=== PATIENT | female | born 1945 | race Caucasian/White ===

== ENCOUNTER 2021-07-08 11:42 | Emergency (ER) | payer SELFPAY ==
[2021-07-08] MEDS ORDERED: Sodium Chloride 0.9% 10 ML Syringe FLUSH PRN (11:49)
[2021-07-08] MEDS ORDERED: Aspirin 81 MG Tab.Chew PO ONE (11:57)
[2021-07-08] MEDS ORDERED: Ondansetron 4 MG/2 ML SDV IVPUSH ONE (11:57)
[2021-07-08] MEDS ORDERED: Nitroglycerin 0.4 MG Tab.SL SL ONE (12:01)
--- NOTE | 2021-07-08 12:01 | EDM.PDOC ---
ED HPI GENERAL MEDICAL PROBLEM - General Chief Complaint: Chest Pain Stated Complaint: CHEST PAIN Time Seen by Provider: 07/08/21 11:49 Source of Information: Reports: Patient, RN Notes Reviewed History Limitations: Reports: No Limitations - History of Present Illness INITIAL COMMENTS - FREE TEXT/NARRATIVE: Patient is a 76-year-old female who presents to the ER for evaluation of her chest pain. Notes that this started at around 3 AM this morning. States that it started in her left chest, and is now radiated up to her left jaw, and left arm. States that she is never had pain like this before ever. She states it hurts to take a deep breath as well. Notes a history of hypertension and a smoking history, so she has a congested cough normally and this is not worsened. Other than the above symptoms, she has been feeling well prior to this. She took her blood pressure meds this morning, but did not take any sort of aspirin or anything for the pain. She has a primary care provider at the [facility]. She has had no fevers or chills, she does feel somewhat nauseous but no vomiting or diarrhea, and again no worsening cough or shortness of breath. She further denies any previous cardiac history. Left Chest Pain Score (Numeric/FACES): 10 Left Arm Pain Score (Numeric/FACES): 10 Left Jaw Pain Score (Numeric/FACES): 10 - Related Data Allergies Allergy/AdvReac Type Severity Reaction Status Date / Time No Known Allergies Allergy Verified 07/08/21 11:55 Home Meds: Home Meds cloNIDine [Catapres-TTS 1] 0.1 mg PO DAILY 07/08/21 [History] lisinopriL [Lisinopril] 40 mg PO DAILY 07/08/21 [History] Past Medical History Cardiovascular History: Reports: Hypertension ED ROS GENERAL - Review of Systems Review Of Systems: Comprehensive ROS is negative, except as noted in HPI. ED EXAM, GENERAL - Physical Exam Exam: See Below Exam Limited By: No Limitations General Appearance: Alert, WD/WN, No Apparent Distress, Anxious (slight generalized) Throat/Mouth: Normal Inspection, Normal Lips, Normal Teeth, Normal Gums, Normal Oropharynx, Normal Voice, No Airway Compromise Respiratory/Chest: No Respiratory Distress, Lungs Clear, Normal Breath Sounds, No Accessory Muscle Use, Chest Non-Tender Cardiovascular: Normal Peripheral Pulses, Regular Rate, Rhythm, No Edema Peripheral Pulses: 2+: Radial (L), Radial (R) GI/Abdominal: Normal Bowel Sounds, Soft, Non-Tender, No Distention, No Mass Extremities: Normal Inspection, Normal Capillary Refill Neurological: Alert, Oriented, Normal Cognition, No Motor/Sensory Deficits Psychiatric: Normal Affect, Normal Mood Skin Exam: Warm, Dry, Intact, Normal Color, No Rash #1 Interpretation EKG Date: 07/08/21 Time: 11:50 Rhythm: NSR Rate (Beats/Min): 89 [place]: Normal P-Wave: Present QRS: Normal ST-T: Other (T wave abnormalities in diffuse leads to include anterior/lateral/inferior leads.) QT: Normal Comparison: NA - No Prior EKG EKG Interpretation Comments: No acute ST elevation or depression, but there are diffuse T wave abnormalities in anterior/lateral/inferior leads that can be appreciated by myself and Dr. Abdul at this time. Course - Vital Signs Last Recorded V/S: Last Vital Signs Temp 97.2 F 07/08/21 11:52 Pulse 92 07/08/21 11:52 Resp 31 H 07/08/21 11:52 BP 137/116 H 07/08/21 12:07 Pulse Ox 88 L 07/08/21 12:17 - Orders/Labs/Meds Orders: Active Orders 24 hr Category Date Time Status Peripheral IV Care [RC] . DIRECTED Care 07/08/21 11:49 Active Chest 1V Frontal [CR] Stat Exams 07/08/21 11:49 Ordered Heparin Sodium/D5W [Heparin 25,000 Units in D5W 500 ML] Med 07/08/21 13:00 Ordered 25,000 units in 500 ml IV TITRATE Sodium Chloride 0.9% [Saline Flush] Med 07/08/21 11:49 Active 10 ml FLUSH ASDIRECTED PRN Peripheral IV Insertion Adult [OM.PC] Stat Oth 07/08/21 11:49 Ordered Medication Orders Heparin Sodium/Dextrose (Heparin 25,000 Units In D5w 500 Ml) 25,000 units in 500 mls @ 15.737 mls/hr IV TITRATE PILAR; Protocol Last Admin: 07/08/21 13:01 Dose: 12 units/kg/hr, 15.737 mls/hr Documented by: LINDA Cosigned by: TEA Sodium Chloride (Sodium Chloride 0.9% 10 Ml Syringe) 10 ml FLUSH ASDIRECTED PRN PRN Reason: Keep Vein Open Last Admin: 07/08/21 12:06 Dose: 10 ml Documented by: LINDA Labs: Laboratory Tests 07/08/21 07/08/21 07/08/21 Range/Units 12:00 12:00 12:00 WBC 19.29 H (3.98-10.04) K/mm3 RBC 5.10 (3.98-5.22) M/mm3 Hgb 15.4 (11.2-15.7) gm/dl Hct 45.5 H (34.1-44.9) % MCV 89.2 (79.4-94.8) fl MCH 30.2 (25.6-32.2) pg MCHC 33.8 (32.2-35.5) g/dl RDW Std Deviation 42.0 (36.4-46.3) fL Plt Count 325 (182-369) K/mm3 MPV 9.3 L (9.4-12.3) fl Neut % (Auto) 85.4 H (34.0-71.1) % Lymph % (Auto) 6.1 L (19.3-51.7) % [place] % (Auto) 8.1 (4.7-12.5) % Eos % (Auto) 0 L (0.7-5.8) Baso % (Auto) 0.2 (0.1-1.2) % Neut # (Auto) 16.48 H (1.56-6.13) K/mm3 Lymph # (Auto) 1.17 L (1.18-3.74) K/mm3 [place] # (Auto) 1.57 H (0.24-0.36) K/mm3 Eos # (Auto) 0.00 L (0.04-0.36) K/mm3 Baso # (Auto) 0.03 (0.01-0.08) K/mm3 Manual Slide Review Normal smear PT 10.9 (9.7-12.0) SECONDS INR 1.02 APTT 30.7 (21.7-31.4) SECONDS Sodium 135 L (136-145) mEq/L Potassium 4.5 (3.5-5.1) mEq/L Chloride 101 (98-107) mEq/L Carbon Dioxide 24 (21-32) mEq/L Anion Gap 14.5 (5-15) BUN 11 (7-18) mg/dL Creatinine 0.8 (0.55-1.02) mg/dL Est Cr Clr Drug Dosing TNP Estimated GFR (MDRD) > 60 (>60) mL/min BUN/Creatinine Ratio 13.8 L (14-18) Glucose 115 H (70-99) mg/dL Calcium 9.2 (8.5-10.1) mg/dL Magnesium 2.0 (1.8-2.4) mg/dL Total Bilirubin 1.4 H (0.2-1.0) mg/dL AST 24 (15-37) U/L ALT 22 (14-59) U/L Alkaline Phosphatase 116 (46-116) U/L Troponin I 1.132 H* (0.00-0.056) ng/mL NT-Pro-B Natriuret Pep (0-450) pg/mL Total Protein 7.7 (6.4-8.2) g/dl Albumin 3.9 (3.4-5.0) g/dl Globulin 3.8 gm/dL Albumin/Globulin Ratio 1.0 (1-2) Influenza Type A RNA (NEGATIVE) Influenza Type B RNA (NEGATIVE) SARS-CoV-2 RNA (NANCY) (NEGATIVE) 07/08/21 07/08/21 Range/Units 12:00 12:08 WBC (3.98-10.04) K/mm3 RBC (3.98-5.22) M/mm3 Hgb (11.2-15.7) gm/dl Hct (34.1-44.9) % MCV (79.4-94.8) fl MCH (25.6-32.2) pg MCHC (32.2-35.5) g/dl RDW Std Deviation (36.4-46.3) fL Plt Count (182-369) K/mm3 MPV (9.4-12.3) fl Neut % (Auto) (34.0-71.1) % Lymph % (Auto) (19.3-51.7) % [place] % (Auto) (4.7-12.5) % Eos % (Auto) (0.7-5.8) Baso % (Auto) (0.1-1.2) % Neut # (Auto) (1.56-6.13) K/mm3 Lymph # (Auto) (1.18-3.74) K/mm3 [place] # (Auto) (0.24-0.36) K/mm3 Eos # (Auto) (0.04-0.36) K/mm3 Baso # (Auto) (0.01-0.08) K/mm3 Manual Slide Review PT (9.7-12.0) SECONDS INR APTT (21.7-31.4) SECONDS Sodium (136-145) mEq/L Potassium (3.5-5.1) mEq/L Chloride (98-107) mEq/L Carbon Dioxide (21-32) mEq/L Anion Gap (5-15) BUN (7-18) mg/dL Creatinine (0.55-1.02) mg/dL Est Cr Clr Drug Dosing Estimated GFR (MDRD) (>60) mL/min BUN/Creatinine Ratio (14-18) Glucose (70-99) mg/dL Calcium (8.5-10.1) mg/dL Magnesium (1.8-2.4) mg/dL Total Bilirubin (0.2-1.0) mg/dL AST (15-37) U/L ALT (14-59) U/L Alkaline Phosphatase (46-116) U/L Troponin I (0.00-0.056) ng/mL NT-Pro-B Natriuret Pep 9746 H (0-450) pg/mL Total Protein (6.4-8.2) g/dl Albumin (3.4-5.0) g/dl Globulin gm/dL Albumin/Globulin Ratio (1-2) Influenza Type A RNA Negative (NEGATIVE) Influenza Type B RNA Negative (NEGATIVE) SARS-CoV-2 RNA (NANCY) Negative (NEGATIVE) Meds: Medications Generic Name Dose Route Start Last Admin Trade Name Freq PRN Reason Stop Dose Admin Heparin Sodium/Dextrose 25,000 units in 500 mls @ 15.737 mls/hr 07/08/21 13:00 07/08/21 13:01 Heparin 25,000 Units In D5w 500 Ml IV 12 units/kg/hr TITRATE PILAR 15.737 mls/hr Administration Protocol 12 UNITS/KG/HR Sodium Chloride 10 ml 07/08/21 11:49 07/08/21 12:06 Sodium Chloride 0.9% 10 Ml Syringe FLUSH 10 ml ASDIRECTED PRN Administration Keep Vein Open Discontinued Medications Generic Name Dose Route Start Last Admin Trade Name Omar PRN Reason Stop Dose Admin Aspirin 324 mg 07/08/21 11:57 07/08/21 12:05 Aspirin 81 Mg Tab.Chew PO 07/08/21 11:58 324 mg ONETIME ONE Administration Heparin Sodium (Porcine) 4,000 units 07/08/21 12:51 07/08/21 13:00 Heparin Sodium 5,000 Units/Ml Vial IVPUSH 07/08/21 12:52 4,000 units .BOLUS ONE Administration Nitroglycerin 0.4 mg 07/08/21 12:01 07/08/21 12:07 Nitroglycerin 0.4 Mg Tab.Sl SL 07/08/21 12:02 0.4 mg ONETIME ONE Administration Ondansetron HCl 4 mg 07/08/21 11:57 07/08/21 12:06 Ondansetron 4 Mg/2 Ml Sdv IVPUSH 07/08/21 11:58 4 mg ONETIME ONE Administration - Re-Assessments/Exams Free Text/Narrative Re-Assessment/Exam: 07/08/21 11:59 Patient presents to the ER for her chest pain, EKG done at time of triage, has some abnormal T waves in the anterior, lateral, inferior leads. Dr. Abdul did look over the EKG initially as well. We will go ahead and get basic labs. 07/08/21 13:10 The patient's CBC did come back with a white count that is elevated at 19.29, metabolic panel is fairly unremarkable, troponin is positive at 1.132. proBNP is also markedly elevated at 9746. Her Covid screen was negative for today's purposes. I did discuss information with the patient, and she would like to go to [facility] in [place] for management however I was just made aware that they are on diversion, so I will call [facility] for transfer for non-STEMI. Heparin bolus and order has been placed. Departure - Departure Time of Disposition: 13:11 Disposition: DC/Tfer to Acute Hospital 02 Reason for Transfer *Q: Primary PCI Indicated Condition: Fair Clinical Impression: NSTEMI (non-ST elevated myocardial infarction) Referrals: PCP,None [Primary Care Provider] - Forms: ED Department Discharge Sepsis Event Note (ED) - Focused Exam Vital Signs: Vital Signs Temp Pulse Resp BP BP Pulse Ox Pulse Ox 07/08/21 12:17 88 L 07/08/21 12:07 137/116 H 07/08/21 11:52 97.2 F 92 31 H 144/93 H 95 - My Orders Last 24 Hours: My Active Orders 07/08/21 11:49 Peripheral IV Care [RC] . DIRECTED Chest 1V Frontal [CR] Stat Sodium Chloride 0.9% [Saline Flush] 10 ml FLUSH ASDIRECTED PRN Peripheral IV Insertion Adult [OM.PC] Stat 07/08/21 13:00 Heparin Sodium/D5W [Heparin 25,000 Units in D5W 500 ML] 25,000 units in 500 ml IV TITRATE - Assessment/Plan Last 24 Hours: My Active Orders 07/08/21 11:49 Peripheral IV Care [RC] . DIRECTED Chest 1V Frontal [CR] Stat Sodium Chloride 0.9% [Saline Flush] 10 ml FLUSH ASDIRECTED PRN Peripheral IV Insertion Adult [OM.PC] Stat 07/08/21 13:00 Heparin Sodium/D5W [Heparin 25,000 Units in D5W 500 ML] 25,000 units in 500 ml IV TITRATE
[2021-07-08] MEDS ORDERED: Heparin Sodium 5,000 Units/ML Vial IVPUSH ONE (12:51)
[2021-07-08 12:54] LABS: CORONAVIRUS COVID-19 NAA NEGATIVE (NEGATIVE)
[2021-07-08] MEDS ORDERED: Heparin Sodium/D5W 25,000 UNITS/500 ML BAG IV SCH (13:00)
--- NOTE | 2021-07-09 09:16 | CR ---
Chest: Portable view of the chest was obtained. Comparison: No prior chest imaging is available. Heart size and mediastinum are normal. Slight density is noted within the left lateral costophrenic angle. Lungs otherwise are clear. Bony structures are osteopenic. Minimal scoliosis is noted. Impression: 1. Slight density within the lateral left costophrenic angle either due to mild atelectasis or scarring. 2. Other incidental findings as noted above. Diagnostic code #2
== END 2021-07-08 14:24 ==
LOC: JD.ED 11:42
DX: I21.4 Non-ST elevation (NSTEMI) myocardial infarction (principal); I10 Essential (primary) hypertension; Z79.899 Other long term (current) drug therapy; Z20.822 Contact with and (suspected) exposure to COVID-19
CPT/HCPCS: 0240U; 36415; 71045; 80053; 83735; 83880; 84484; 85025; 85610; 85730; 93005; 96365; 96375; 99285; A9270; J1644; J2405; 93010

== ENCOUNTER 2022-10-29 12:16 | Inpatient (IN) | payer MEDICARE, OTHER ==
[2022-10-29] MEDS ORDERED: Albuterol/Ipratropium 3.0-0.5 MG/3 ML Neb Soln NEB ONE ×2 (12:59→14:00)
[2022-10-29] MEDS ORDERED: Sodium Chloride 0.9% 10 ML Syringe FLUSH PRN (12:59)
[2022-10-29] MEDS ORDERED: methylPREDNISolone Sodium Succinate 125 MG/2 ML SDV IVPUSH ONE (12:59)
[2022-10-29 13:51] LABS: ESTIMATED GFR 66 mL/min (>60)
[2022-10-29 14:14] LABS: CORONAVIRUS COVID-19 NAA POSITIVE (NEGATIVE)
[2022-10-29] MEDS ORDERED: REMDESIVIR 200 MG in Sodium Chloride 0.9% 250 ML IV ONE (15:14)
[2022-10-29] MEDS ORDERED: REMDESIVIR 200 MG ONE (16:06)
[2022-10-29] MEDS ORDERED: Ondansetron 4 MG/2 ML SDV IV PRN (16:59)
[2022-10-29] MEDS ORDERED: Albuterol 0.083% 2.5 MG/3 ML Neb Soln NEB PRN (16:59)
[2022-10-29] MEDS ORDERED: Docusate Sodium 100 MG Cap PO PRN (16:59)
[2022-10-29] MEDS ORDERED: guaiFENesin/Dextromethorphan 100-10 MG/5 ML Soln 5 ML Cup PO ONE (17:16)
[2022-10-29] MEDS: Albuterol/Ipratropium 3.0-0.5 MG/3 ML Neb Soln NEB SCH (20:43)
[2022-10-29] MEDS: Rosuvastatin 10 MG Tab PO SCH (22:37)
[2022-10-29] MEDS: methylPREDNISolone Sodium Succinate 40 MG/1 ML SDV IVPUSH SCH (22:37)
[2022-10-29] MEDS: Acetaminophen 325 MG Tab PO PRN (22:44)
[2022-10-29] MEDS: guaiFENesin/Dextromethorphan 100-10 MG/5 ML Soln 5 ML Cup PO SCH (22:46)
[2022-10-30] MEDS: guaiFENesin/Dextromethorphan 100-10 MG/5 ML Soln 5 ML Cup PO SCH ×3 (06:02→20:59)
[2022-10-30] MEDS: methylPREDNISolone Sodium Succinate 40 MG/1 ML SDV IVPUSH SCH ×3 (06:02→20:59)
[2022-10-30] MEDS: Albuterol/Ipratropium 3.0-0.5 MG/3 ML Neb Soln NEB SCH ×4 (06:19→20:21)
[2022-10-30] MEDS: Metoprolol Succinate 50 MG Tab.ER PO SCH (09:08)
[2022-10-30] MEDS: Enoxaparin 40 MG/0.4 ML Syringe SUBCUT SCH ×2 (09:08→09:15)
[2022-10-30] MEDS: Lisinopril 20 MG Tab PO SCH (09:09)
[2022-10-30] MEDS: Aspirin 81 MG Tab.EC PO SCH (09:10)
[2022-10-30] MEDS: amLODIPine 5 MG Tab PO SCH (09:10)
[2022-10-30] MEDS: Nicotine 21 MG/24 Hr Patch TRDERM SCH ×2 (09:12→09:16)
[2022-10-30] MEDS: Remove Patch *NICOTINE PATCH TRDERM SCH (09:13)
[2022-10-30] MEDS: Acetaminophen 325 MG Tab PO PRN ×2 (09:22→20:58)
[2022-10-30] MEDS ORDERED: Trolamine Salicylate/Aloe Vera 10% Crm 85 GM Tube TOP PRN (09:23)
[2022-10-30] MEDS ORDERED: FLU Vacc QS2022(65UP)/MF59C/PF 60 MCG/0.5 ML Syringe IM ONE (10:00)
[2022-10-30] MEDS ORDERED: REMDESIVIR 100 MG in Sodium Chloride 0.9% 250 ML IV SCH (16:30)
[2022-10-30] MEDS: Benzocaine/Cetylpyridinium/Menthol Lozenge MUCMEM PRN (18:01)
[2022-10-30] MEDS: Rosuvastatin 10 MG Tab PO SCH (20:59)
[2022-10-31] MEDS: Benzocaine/Cetylpyridinium/Menthol Lozenge MUCMEM PRN (00:03)
[2022-10-31] MEDS: Albuterol/Ipratropium 3.0-0.5 MG/3 ML Neb Soln NEB SCH ×3 (05:52→15:25)
[2022-10-31] MEDS: predniSONE 20 MG Tab PO SCH (06:14)
[2022-10-31] MEDS: guaiFENesin/Dextromethorphan 100-10 MG/5 ML Soln 5 ML Cup PO SCH ×2 (06:15→21:17)
[2022-10-31] MEDS ORDERED: REMDESIVIR 100 MG in Sodium Chloride 0.9% 250 ML IV SCH (09:30)
[2022-10-31] MEDS: Acetaminophen 325 MG Tab PO PRN ×2 (09:44→21:17)
[2022-10-31] MEDS: Enoxaparin 40 MG/0.4 ML Syringe SUBCUT SCH (09:44)
[2022-10-31] MEDS: Lisinopril 20 MG Tab PO SCH (09:46)
[2022-10-31] MEDS: Aspirin 81 MG Tab.EC PO SCH (09:46)
[2022-10-31] MEDS: Metoprolol Succinate 50 MG Tab.ER PO SCH (09:46)
[2022-10-31] MEDS: amLODIPine 5 MG Tab PO SCH (09:47)
[2022-10-31] MEDS: Nicotine 21 MG/24 Hr Patch TRDERM SCH (11:36)
[2022-10-31] MEDS: Remove Patch *NICOTINE PATCH TRDERM SCH (11:36)
[2022-10-31] MEDS ORDERED: Albuterol/Ipratropium 3.0-0.5 MG/3 ML Neb Soln NEB PRN (15:43)
[2022-10-31] MEDS: Rosuvastatin 10 MG Tab PO SCH (21:17)
[2022-11-01] MEDS: Benzocaine/Cetylpyridinium/Menthol Lozenge MUCMEM PRN ×2 (00:05→09:23)
[2022-11-01] MEDS: guaiFENesin/Dextromethorphan 100-10 MG/5 ML Soln 5 ML Cup PO SCH ×3 (06:02→20:55)
[2022-11-01] MEDS: predniSONE 20 MG Tab PO SCH (06:02)
[2022-11-01] MEDS: Metoprolol Succinate 50 MG Tab.ER PO SCH (09:00)
[2022-11-01] MEDS: Nicotine 21 MG/24 Hr Patch TRDERM SCH (09:00)
[2022-11-01] MEDS: Remove Patch *NICOTINE PATCH TRDERM SCH (09:00)
[2022-11-01] MEDS: Lisinopril 20 MG Tab PO SCH (09:11)
[2022-11-01] MEDS: Aspirin 81 MG Tab.EC PO SCH (09:12)
[2022-11-01] MEDS: amLODIPine 5 MG Tab PO SCH (09:12)
[2022-11-01] MEDS: Enoxaparin 40 MG/0.4 ML Syringe SUBCUT SCH (09:13)
[2022-11-01] MEDS: Acetaminophen 325 MG Tab PO PRN (20:55)
[2022-11-01] MEDS: Rosuvastatin 10 MG Tab PO SCH (20:55)
[2022-11-01] MEDS ORDERED: Benzocaine/Cetylpyridinium/Menthol Lozenge MUCMEM STA (20:57)
[2022-11-02] MEDS: predniSONE 20 MG Tab PO SCH (06:08)
[2022-11-02] MEDS: guaiFENesin/Dextromethorphan 100-10 MG/5 ML Soln 5 ML Cup PO SCH (06:08)
[2022-11-02] MEDS: Enoxaparin 40 MG/0.4 ML Syringe SUBCUT SCH (10:22)
[2022-11-02] MEDS: Nicotine 21 MG/24 Hr Patch TRDERM SCH (10:23)
[2022-11-02] MEDS: Metoprolol Succinate 50 MG Tab.ER PO SCH (10:23)
[2022-11-02] MEDS: Lisinopril 20 MG Tab PO SCH (10:23)
[2022-11-02] MEDS: Remove Patch *NICOTINE PATCH TRDERM SCH (10:24)
[2022-11-02] MEDS: amLODIPine 5 MG Tab PO SCH (10:24)
[2022-11-02] MEDS: Aspirin 81 MG Tab.EC PO SCH (10:24)
[2022-11-03] MEDS ORDERED: predniSONE 20 MG Tab PO SCH (07:00)
== END 2022-11-02 13:00 | disposition home or self-care (01) | DRG 177 ==
LOC: JD.ED 12:16 → JD.MS 15:35
PROVIDERS: ADMIT Hospitalist; ATTEND Hospitalist
PROC: 8E0ZXY6 Isolation (ICD-10-PCS; principal; 2022-10-29)
PROC: XW033E5 Introduction of Remdesivir Anti-infective into Peripheral Vein, Percutaneous Approach, New Technology Group 5 (ICD-10-PCS; 2022-10-29)
DX: U07.1 COVID-19 (principal); J96.01 Acute respiratory failure with hypoxia; J44.1 Chronic obstructive pulmonary disease with (acute) exacerbation; E78.5 Hyperlipidemia, unspecified; I10 Essential (primary) hypertension; E78.00 Pure hypercholesterolemia, unspecified; H54.7 Unspecified visual loss; F17.210 Nicotine dependence, cigarettes, uncomplicated; Z79.52 Long term (current) use of systemic steroids; Z79.82 Long term (current) use of aspirin; Z90.49 Acquired absence of other specified parts of digestive tract; Z79.899 Other long term (current) drug therapy; Z95.1 Presence of aortocoronary bypass graft
CPT/HCPCS: 0241U; 36415; 71045; 80048; 80053; 83735; 84145; 85025; 85610; 86140; 94640; 94667; 94668; 94760; 94761; 96374; 99285; A9270-GY; J1650; J2920; J2930; J3490; J7050; J7512; J7620-GY